=== PATIENT | female | born 1985 | race Two or more races ===

== ENCOUNTER 2019-10-29 20:03 | Emergency (ER) | payer OTHER ==
[~2019-10-29] VITALS: Ht 160 cm; Wt 62.1 kg
[2019-10-29 20:16] VITALS: Ht 160 cm; Wt 62.1 kg
[2019-10-29 20:46] LABS: BASOPHIL % 0.5 % (0-2); PLATELET COUNT 325 x10^3mcL (130-400); RED CELL DISTRIBUTION WIDTH 14.4 % (11.5-14.5)
[2019-10-29 22:48] VITALS: BP 114/72
== END 2019-10-29 22:48 | disposition home or self-care (01) ==
LOC: ED 20:03
PROVIDERS: Emergency Medicine
DX: O20.0 Threatened abortion (principal); G43.909 Migraine, unspecified, not intractable, without status migrainosus
CPT/HCPCS: 36415; Q0092